=== PATIENT | male | born 1995 | race Caucasian/White ===

== ENCOUNTER → 2020-03-31 | Day surgery (SDC) | payer OTHER ==
[~2020-03-31] MED LIST: BUSPIRONE HCL15 MG PO; COGENTIN2 MG/2 ML PO; NORCO 5-325 TA1 EACH PO; PEPCID AC20 MG PO; SEROQUEL200 MG PO; VITAMIN D325 MC2 PO; ZOFRAN8 MG PO
== END | disposition home or self-care (01) ==
LOC: FAS 08:22
DX: T81.89XA Other complications of procedures, not elsewhere classified, initial encounter (principal); G25.81 Restless legs syndrome; K21.9 Gastro-esophageal reflux disease without esophagitis; F17.210 Nicotine dependence, cigarettes, uncomplicated; F41.9 Anxiety disorder, unspecified; L40.9 Psoriasis, unspecified; E66.01 Morbid (severe) obesity due to excess calories; Z68.41 Body mass index [BMI] 40.0-44.9, adult; Z79.899 Other long term (current) drug therapy
CPT/HCPCS: 93005; J2250; J2405; J2704; J3010; J7120